=== PATIENT | male | born 1995 | race Caucasian/White ===

== ENCOUNTER 2023-05-26 16:26 | Emergency (ER) | payer OTHER ==
[~2023-05-26] VITALS: Ht 182.8 cm; Wt 190.5 kg
== END 2023-05-26 17:18 | disposition home or self-care (01) ==
LOC: ED 16:26
DX: S40.012A Contusion of left shoulder, initial encounter (principal); R51.9 Headache, unspecified; V43.53XA Car driver injured in collision with pick-up truck in traffic accident, initial encounter; Y93.89 Activity, other specified; Y92.410 Unspecified street and highway as the place of occurrence of the external cause; Y99.8 Other external cause status; Z88.0 Allergy status to penicillin